=== PATIENT | male | born 1995 | race Caucasian/White ===

== ENCOUNTER 2018-04-17 20:10 | Emergency (ER) | payer OTHER ==
[2018-04-17] MEDS: IBUPROFEN 600 MG TAB PO (23:00)
== END 2018-04-18 00:08 | disposition home or self-care (01) ==
LOC: M ED 04-18 00:08
DX: S49.92XA Unspecified injury of left shoulder and upper arm, initial encounter (principal); W19.XXXA Unspecified fall, initial encounter; Y92.89 Other specified places as the place of occurrence of the external cause; F17.220 Nicotine dependence, chewing tobacco, uncomplicated
CPT/HCPCS: 73030